=== PATIENT | female | born 1990 | race Caucasian/White ===

== ENCOUNTER 2019-03-15 21:33 | Emergency (ER) | payer MEDICARE, MEDICAID ==
[~2019-03-15] VITALS: Ht 157.5 cm; Wt 97.3 kg
[~2019-03-15 21:33] MED LIST: FERROUS SU325 MG/TAB PO; FLINTSTONES1 CTB PO; MOTRIN 600600 MG/TAB PO; PERCOCET 325 MG1 TA2 PO; PROCARDIA XL 3030 MG PO
[2019-03-15 21:38] VITALS: BP 165/109; TEMP 97.1
[2019-03-15] MEDS ORDERED: CEPHALEXIN500 M1 PO (21:52)
[2019-03-15] MEDS ORDERED: TOPAMAX50 MG PO (22:00)
[2019-03-15] MEDS ORDERED: VYVANSE40 MG PO (22:03)
[2019-03-15] MEDS ORDERED: AMOXICILLIN 8751 TAB PO (22:11)
[2019-03-15 22:45] VITALS: PULSE 97
== END 2019-03-15 22:45 | disposition home or self-care (01) ==
LOC: COL.ER 21:33
DX: L05.91 Pilonidal cyst without abscess (principal); Z98.890 Other specified postprocedural states

== ENCOUNTER 2019-12-16 10:21 | Emergency (ER) | payer MEDICARE, MEDICAID ==
[~2019-12-16] VITALS: Ht 157.5 cm; Wt 97.3 kg
[~2019-12-16 10:21] MED LIST changes: +AMOXICILLIN 8751 TAB PO; +CEPHALEXIN500 M1 PO; +TOPAMAX50 MG PO; +VYVANSE40 MG PO
[2019-12-16 10:28] VITALS: BP 148/105; PULSE 114
[2019-12-16] MEDS ORDERED: CEPHALEXIN500 M1 PO (11:17)
[2019-12-16] MEDS ORDERED: BACTRIM DS 8001 TAB PO (11:17)
[2019-12-16] MEDS ORDERED: NORCO 325 MG-51 TAB PO (11:17)
== END 2019-12-16 11:40 | disposition home or self-care (01) ==
LOC: COL.ER 10:21
DX: L05.01 Pilonidal cyst with abscess (principal); G43.909 Migraine, unspecified, not intractable, without status migrainosus; F90.9 Attention-deficit hyperactivity disorder, unspecified type